=== PATIENT | male | born 1940 | race Caucasian/White ===

== ENCOUNTER 2024-08-19 15:27 | Emergency (ER) | payer OTHER, SELFPAY ==
[2024-08-19 15:35] VITALS: BP 125/79
--- NOTE | 2024-08-19 17:12 | ED.GENMED ---
History of Present Illness
General
Chief Complaint: Skin Surface Trauma
Source: patient
Exam Limitations: none
Time Seen by Provider: 08/19/24 16:18
Nursing documentation reviewed up to this point in time: agreed with
History of Present Illness
History of Present Illness:
84-year-old male with past medical history of A-fib currently on Xarelto, hypertension hyperlipidemia presenting to the emergency department today with concerns of a chainsaw that hit him in the left wrist prior to arrival when he was cutting wood.
Unsure when his last tetanus shot was. He went to an urgent care and they told him that he may have a tendon injury and sent him to the ER. Denies any difficulty with movement any numbness or weakness.
Past History
Past History
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
ED Past Surgical History: Appendectomy and Urological
Social History
Tobacco: Non-smoker
Alcohol: None
Drug: None
Personal:
Living: alone
Employment: Retired
Family History
Family History: Other (Noncontributory)
Review of Systems
Review of Systems
Allergies reviewed?: Yes
All Other Systems: ROS reviewed and negative except as documented in HPI and ROS
Phy Exam
Physical Exam
Physical Exam:
GENERAL: Alert , in no apparent distress
EYE: pupils equal and reactive
NECK: Supple, no significant adenopathy.
ENT: o/p clr, mmm.
CARDIAC: Regular rate and rhythm .
LUNGS: Clear breath sounds bilaterally, no acute respiratory distress, no wheezes/rales/rhonchi
ABDOMEN: Soft, without focal tenderness, no r/g, no cvat
NEUROLOGICAL: Alert and oriented, no focal neuro deficits
SKIN: Laceration to the left wrist at the ulnar aspect on the dorsal aspect. Wound roughly 5 cm in length goes deep to the tendon but the tendon is intact and good range of motion and strength of the wrist and hand. Warm and dry, skin intact.
MUSCULOSKELETAL: No edema, well perfused.
PSYCH: Normal and appropriate interaction.
Course
Orders/Labs/Results
Orders:
Orders
08/19/24 17:05
Cephalexin Monohydrate [Keflex] 500 mg PO NOW STA
Tetanus/Diphth/Acelpertussis [Adacel] 0.5 ml IM .ONCE ONE
Vital Signs
Initial and Last Documented VS:
Initial Vital Signs
Temp Pulse Resp BP Pulse Ox
97.7 F 96 18 125/79 99
08/19/24 15:35 08/19/24 15:35 08/19/24 15:35 08/19/24 15:35 08/19/24 15:35
Last Documented Vital Signs
Temp Pulse Resp BP Pulse Ox
97.7 F 96 18 125/79 99
08/19/24 15:35 08/19/24 15:35 08/19/24 15:35 08/19/24 15:35 08/19/24 15:35
Procedures
Laceration Closure
Left Ulnar Wrist:
Status of Wound: clean
Size of Wound in cm: 5
Description of Wound Edges: ragged and surrounded by abrasion
Preparation: cleaned with saline
Anesthesia: 1% Lidocaine with epi
Revision/Debridement: routine- no revision and irrigate-direct pressure
Wound exploration: explored to base- no FB and no tendon involvement
Type of Closure: single layer closure and interrupted sutures
Skin Closure Material: 4-0 nylon
Number of sutures: 8
MDM/Problems Addressed
MDM/Problems Addressed:
84-year-old male presenting to the emergency department today with concerns of left wrist laceration from a chainsaw prior to arrival. This was clean in appearance thoroughly irrigated here started on Keflex and given a tetanus shot. Otherwise the
tendon was visualized but there was no obvious injury to the send the good range of motion strength of the wrist and hand. No apparent significant tendon injury at this time. This was closed and advised outpatient follow-up as well as suture
removal in 12 to 14 days. Return precautions given.
*Critical Care Note
Total Time (30-74mins, 75-104mins- exclusive of procedures): Not Applicable
ED Attending Note
-
Portions of this chart may have been created with voice recognition software.� Occasional wrong word or��sound alike� substitutions may have occurred due to the inherent limitations of voice recognition software.
Discharge Plan
Departure
Patient Disposition: Home (Routine Discharge)
Date of Disposition: 08/19/24
Time of Disposition: 17:22
Patient with high blood pressure during this ER visit?: No
Condition: Good
Covid-19: Not Applicable
Discharge Problem:
Laceration of left wrist
Instructions: Laceration Repair With Stitches (DC)
Prescriptions:
New
cephalexin 500 mg capsule
500 mg PO TID 3 Days Qty: 9 0RF
No Action
diphenhydramine-acetaminophen [Tylenol PM Extra Strength] 25-500 mg Tablet
1 tab PO HS PRN (Reason: sleep) Qty: 0
venlafaxine [Effexor XR] 37.5 MG capsule,extended release 24hr
37.5 mg PO DAILY
clonazepam 0.25 MG tablet
0.25 mg PO HS
Patient Comments:
04/05/2023: last filled 03/23/23, 15 tabs for 30 days from [id number]
Xarelto 20 MG tablet
20 mg PO QPM
offtsvecvnw-dqbyfxuip-gga C-Mn 1 TAB tablet
1 tab PO DAILY
amlodipine 5 mg Tablet
5 mg PO DAILY
melatonin 5 mg Tablet
5 mg PO HS
imnxuseibjyw-aciqyxzt-ataypb Tablet
1 tab PO DAILY
omega 7-vcv-ugz-fish oil [Fish Oil] 1,200 (144-216) mg Capsule
1 cap PO DAILY
tramadol 50 mg tablet
50 mg PO Q6HPRN PRN (Reason: severe pain/breakthrough pain) Qty: 10 0RF
acetaminophen [Tylenol Extra Strength] 500 mg tablet
1,000 mg PO Q6HPRN PRN (Reason: mild pain) Qty: 1 0RF
polyethylene glycol 3350 [Miralax] 17 gram/dose powder
4 g PO DAILY PRN (Reason: Constipation) Qty: 119 0RF
Rx Instructions:
start a laxative such as MIRALAX on day 2 after surgery if no bowel movement yet as long as no nausea/vomiting and passing gas
Referrals:
Irineo Rosenthal MD [Active] - Follow up in 5-7 days
Melvin Pierce MD [Family Provider] -
Activity Restrictions/Additional Instructions:
You came to the emergency department today with concerns of a laceration to the left wrist. This was cleaned thoroughly and closed with a total stitches. Please wear the splint and follow-up closely with Ortho or primary care doctor for suture
removal in 12 to 14 days. Return to the emergency department sooner for any worsening, new or concerning symptoms.
Interventions
Interventions:
*Risk Screen - Suicide Last Done: 08/19/24 15:39
*General Assessment Last Done: 08/19/24 15:39
*Neglect/Abuse Screening Last Done: 08/19/24 15:39
*ED COVID-19 Vaccine History Last Done: 08/19/24 15:39
ED-Skin Assessment Last Done: 08/19/24 16:24
Discharge Date and Time
Print Language: PARAGUAYAN
[2024-08-19] MEDS: ADACEL 0.5 ML IM (17:31)
[2024-08-19] MEDS: KEFLEX 500 MG PO (17:31)
== END 2024-08-19 17:40 | disposition home or self-care (01) ==
LOC: EMR 15:27
PROVIDERS: EMERGENCY PHYSICIAN Emergency Medicine; FAMILY PHYSICIAN Family Medicine
DX: S61.512A Laceration without foreign body of left wrist, initial encounter (principal); W29.3XXA Contact with powered garden and outdoor hand tools and machinery, initial encounter; Z23 Encounter for immunization; I48.91 Unspecified atrial fibrillation; I10 Essential (primary) hypertension; E78.00 Pure hypercholesterolemia, unspecified; Z79.01 Long term (current) use of anticoagulants; Z90.49 Acquired absence of other specified parts of digestive tract
CPT/HCPCS: 99282; 12002; 90471; 90715

== ENCOUNTER → 2024-09-03 09:37 | Outpatient (REF) | payer OTHER, SELFPAY | LOC: HWRCS 09:37 | PROVIDERS: ATTENDING PHYSICIAN Nuclear Medicine Nuclear Cardiology; FAMILY PHYSICIAN Family Medicine | DX: I10 Essential (primary) hypertension (principal); I48.91 Unspecified atrial fibrillation | CPT/HCPCS: 93306 ==

== ENCOUNTER 2024-11-12 06:16 | Day surgery (SDC) | payer OTHER, SELFPAY | END 2024-11-12 10:35 | disposition home or self-care (01) | LOC: GI 06:16 | PROVIDERS: ATTENDING PHYSICIAN Specialist | DX: Z12.11 Encounter for screening for malignant neoplasm of colon (principal); K57.30 Diverticulosis of large intestine without perforation or abscess without bleeding; K63.5 Polyp of colon; Z86.0101 Personal history of adenomatous and serrated colon polyps | CPT/HCPCS: 45380; 88305 ==

== ENCOUNTER → 2025-01-23 07:32 | Outpatient (REF) | payer OTHER, SELFPAY | LOC: HWRCS 07:32 | PROVIDERS: ATTENDING PHYSICIAN Nuclear Medicine Nuclear Cardiology; FAMILY PHYSICIAN Family Medicine | DX: I48.91 Unspecified atrial fibrillation (principal); R00.2 Palpitations; I45.10 Unspecified right bundle-branch block | CPT/HCPCS: 78452; 93017; A9500; J2785 ==

== ENCOUNTER 2025-09-21 11:44 | Emergency (ER) | payer OTHER, SELFPAY ==
[2025-09-21 11:50] VITALS: BP 135/75
--- NOTE | 2025-09-21 15:31 | ED.GENMED ---
History of Present Illness
General
Chief Complaint: Musculo-Skeletal Complaint
Time Seen by Provider: 09/21/25 12:10
History of Present Illness
History of Present Illness:
see MDM
Past History
Past History
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
ED Past Surgical History: Appendectomy and Urological
Social History
Tobacco: Non-smoker
Alcohol: None
Drug: None
Personal:
Living: alone
Employment: Retired
Family History
Family History: Other (Noncontributory)
Phy Exam
Physical Exam
Physical Exam:
see MDM
Course
Orders/Labs/Results
Orders:
Orders
09/21/25 12:39
Femur, Right 2 View [CR Femur - Right Min 2 Vw] Urgent
Comment:
Reason For Exam: right thigh pain after injury
Knee, Right 4 or More Views [CR Knee- Right 4 Or More View*] Urgent
Comment:
Reason For Exam: right knee pain with walking/flexion
Venous Doppler Lwr Ext Rt [US Perip Venous LOWER Ext RT] Urgent
Comment:
Reason For Exam: right leg pain,s welling
Vital Signs
Initial and Last Documented VS:
Initial Vital Signs
Temp Pulse Resp BP Pulse Ox
36.7 C 77 20 135/75 100
09/21/25 11:50 09/21/25 11:50 09/21/25 11:50 09/21/25 11:50 09/21/25 11:50
Last Documented Vital Signs
Temp Pulse Resp BP Pulse Ox
36.7 C 77 20 135/75 100
09/21/25 11:50 09/21/25 11:50 09/21/25 11:50 09/21/25 11:50 09/21/25 15:33
MDM/Problems Addressed
Differential Diagnosis Includes:
see MDM
MDM/Problems Addressed:
Note:
CHIEF COMPLAINT(S)
Pain in the right leg, described as originating in the knee and extending up into the hip and down into the big toe.
HISTORY OF PRESENT ILLNESS
The patient is an 85-year-old male who presented with complaints of right leg pain. The onset of the pain was approximately five days ago while the patient was working on a step ladder, during which he felt pain while reaching. He did not experience
any falls. The pain initially began in the thigh area and is currently localized to the back of the knee, extending up into the hip. The patient reports the pain is worse at night, preventing sleep, and noted relief after taking acetaminophen
(Tylenol Extra Strength) around 4 a.m., which helped alleviate the pain temporarily. He describes the pain traveling down to his big toe and mentioned, 'The pain goes down the leg and I had to go to my big toe.' Despite the pain, the patient can
walk by dragging his right leg without flexing the knee. He denies any exacerbation of pain with walking or tenderness in the calf area. The patient is currently on rivaroxaban (Xarelto) for atrial fibrillation, taking it as prescribed without
missing doses. He has a past history of arterial clot in the arm, which required surgical intervention. He denies any chest pain or shortness of breath.
PHYSICAL EXAM
- Nursing notes reviewed and vital signs reviewed.
GENERAL: Alert , in no apparent distress, comfortable at rest
HEAD: NCAT
CV: 2+ DP PULSES B/L
NEUROLOGICAL: Alert and oriented, no focal neuro deficits, , 5/5 strength, sensation intact, ambulation slight limp right leg
SKIN: Warm and dry, normal skin to the right leg, no bruising or redness
MUSCULOSKELETAL: Normal inspection of the right hip, knee, ankle and foot without any redness or swelling or effusions, patient does seem to have most pain with knee flexion in the first 30 degrees but can get to 45 degrees, no laxity on varus and
valgus strength, negative anterior posterior drawer sign, he has some tenderness to the anterior thigh along the quadriceps muscle but there is no knot or obvious tear, he can straight leg raise normally, there is negative straight leg raise from
the back perspective, not initiating any sciatica. He has a slightly swollen calf on the right compared to the left which is not tender. There are some varicose veins. His pulses intact. Patient is able to ambulate
Decently well, minimal limp
PSYCH: Normal and appropriate interaction.
PLAN
- Perform an ultrasound to rule out venous thrombosis in the right leg, given the history of clot and current symptoms.
- Order an X-ray to evaluate the hip and knee for any structural issues contributing to symptoms.
- Continue current management with rivaroxaban (Xarelto) for atrial fibrillation.
- Monitor symptoms and re-evaluate if necessary, based on additional test results.
DIFFERENTIAL DIAGNOSIS
The Differential Diagnosis includes, in no particular order and is not limited to:
1. Deep vein thrombosis
2. Sciatica
3. Muscle strain
5. Osteoarthritis
6. Tendonitis
7. Peripheral neuropathy
8. Bursitis
9. Spinal stenosis
10. Bakers cyst
85 y/o M
stretched while on ladder
felt pulling in thigh
no fall
then developedpain behind R knee
some swelling
no numbness/tinglign/color change/weakness
painwith knee flexion
able to ambulate
thigh still sore
xrays indep reivewed, mild OA knee
US sohws bkaer's cyst which makes sense for pt's posterior knee pain
ash wrap
rice
ortho
*Pulse Oximetry
SaO2: 100
Oxygen Mode of Delivery: Room air
Patient hypoxic: no (100)
*Critical Care Note
Total Time (30-74mins, 75-104mins- exclusive of procedures): Not Applicable
ED Attending Note
-
Portions of this chart may have been created with voice recognition software.� Occasional wrong word or��sound alike� substitutions may have occurred due to the inherent limitations of voice recognition software.
Discharge Plan
Departure
Patient Disposition: Home (Routine Discharge)
Date of Disposition: 09/21/25
Time of Disposition: 15:44
Patient with high blood pressure during this ER visit?: No
Condition: Fair
Covid-19: Not Applicable
Discharge Problem:
Leg pain, right, Arthritis of knee, Lofton's cyst of knee
Instructions: Muscle and Bone Pain (DC), Lofton's Cyst (DC)
Prescriptions:
No Action
diphenhydramine-acetaminophen [Tylenol PM Extra Strength] 25-500 mg Tablet
1 tab PO HS PRN (Reason: sleep) Qty: 0
venlafaxine [Effexor XR] 37.5 MG capsule,extended release 24hr
37.5 mg PO DAILY
clonazepam 0.25 MG tablet
0.25 mg PO HS
Patient Comments:
04/05/2023: last filled 03/23/23, 15 tabs for 30 days from [id number]
Xarelto 20 MG tablet
20 mg PO QPM
tikixuipzro-nkaucucza-raq C-Mn 1 TAB tablet
1 tab PO DAILY
amlodipine 5 mg Tablet
5 mg PO DAILY
melatonin 5 mg Tablet
5 mg PO HS
ftwyybiuozrc-ztkranmj-rlntoh Tablet
1 tab PO DAILY
omega 1-aib-obk-fish oil [Fish Oil] 1,200 (144-216) mg Capsule
1 cap PO DAILY
tramadol 50 mg tablet
50 mg PO Q6HPRN PRN (Reason: severe pain/breakthrough pain) Qty: 10 0RF
acetaminophen [Tylenol Extra Strength] 500 mg tablet
1,000 mg PO Q6HPRN PRN (Reason: mild pain) Qty: 1 0RF
polyethylene glycol 3350 [Miralax] 17 gram/dose powder
4 g PO DAILY PRN (Reason: Constipation) Qty: 119 0RF
Rx Instructions:
start a laxative such as MIRALAX on day 2 after surgery if no bowel movement yet as long as no nausea/vomiting and passing gas
cephalexin 500 mg capsule
500 mg PO TID 3 Days Qty: 9 0RF
Referrals:
Yovani Flores MD [Active, Orthopedics] - Follow up in 1 week
Julio Nj DO [Family Provider, Family Practice] - Follow up in 2-3 days
Activity Restrictions/Additional Instructions:
you have arthritis in your knee which probably caused a Lofton's cyst. Lofton's cyst is large behind your knee can cause pain in your calf. You can use the Ash wrap during the day, take it off at night. It should resolve on its own. You should
take Tylenol every 6 hours. Watch for signs of infection like swelling or redness, watch for color change or temperature change to your foot for any worsening or vascular problems. Follow-up with orthopedist in a couple of days. Call for an
appointment. Return for fever, inability to walk, severe swelling, color change to your foot or any concern
Interventions
Interventions:
*Risk Screen - Suicide Last Done: 09/21/25 11:50
*General Assessment Last Done: 09/21/25 11:50
*Neglect/Abuse Screening Last Done: 09/21/25 11:50
*ED COVID-19 Vaccine History Last Done: 09/21/25 12:07
*ED Influenza Vaccine History Last Done: 09/21/25 12:07
[facility] Fall Risk Assessment Tool Last Done: 09/21/25 12:07
*Nursing Disposition Last Done: 09/21/25 16:11
ED-Musculoskeletal Assessment Last Done: 09/21/25 12:07
Discharge Date and Time
Discharge Date/Time: 09/21/25 16:11
Print Language: ROMANIAN
== END 2025-09-21 16:11 | disposition home or self-care (01) ==
LOC: EMR 11:44
PROVIDERS: EMERGENCY PHYSICIAN Emergency Medicine; FAMILY PHYSICIAN Family Medicine
DX: M71.21 Synovial cyst of popliteal space [Baker], right knee (principal); M17.11 Unilateral primary osteoarthritis, right knee; I10 Essential (primary) hypertension; E78.00 Pure hypercholesterolemia, unspecified; Z90.49 Acquired absence of other specified parts of digestive tract; I48.91 Unspecified atrial fibrillation; Z79.01 Long term (current) use of anticoagulants
CPT/HCPCS: 99284; 73552; 73564; 93971

== ENCOUNTER 2025-09-22 04:29 | Inpatient (IN) | payer OTHER, SELFPAY ==
[2025-09-21 21:42] VITALS: BP 145/118
--- NOTE | 2025-09-21 22:48 | ED.GENMED ---
History of Present Illness
<Sofiya Davidson MD, Resident - Last Filed: 09/22/25 05:58>
General
Chief Complaint: Fever
Source: patient
Time Seen by Provider: 09/21/25 22:24
History of Present Illness
History of Present Illness:
Patient is an 85 male with past medical history significant for osteoarthritis, essential hypertension, anxiety, sleep issues, who is here for pain in the right shoulder, radiating down the medial side to his hand with numbness of fingertips that is
interfering with his ability to do activities of daily living like opening the jars. In addition, he also reports pain in the left jaw that is radiating to the cheek and neck. He was here this morning for evaluation of pain in right leg,
ultrasound was negative for any DVT, a moderate-sized Lofton's cyst was diagnosed. As per the patient he is here for evaluation as he feels like his Lofton's cyst might have ruptured and caused infection in the blood.
He has history of osteoarthritis and recently it has been flaring up in his right shoulder. It has been difficult to get the shoulder above head. He was advised to take Tylenol every 8 hours which he has been doing.
Denies any chest pain, nausea, vomiting, abdominal pain, dizziness, near syncopal or syncopal episodes.
Reports fever at home, it was 98F, patient believes that his baseline is around 97.
Past History
<Sofiya Davidson MD, Resident - Last Filed: 09/22/25 05:58>
Past History
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
ED Past Surgical History: Appendectomy and Urological
Social History
Tobacco: Non-smoker
Alcohol: None
Drug: None
Personal:
Living: alone
Employment: Retired
Family History
Family History: Other (Noncontributory)
Phy Exam
<Sofiya Davidson MD, Resident - Last Filed: 09/22/25 05:58>
General Physical Exam
General Presentation: well appearing and no apparent distress
Cardiovascular Exam
Cardiovascular Exam: regular rate/rhythm, no edema and no murmur
Pulmonary Exam
Pulmonary Exam: lungs clear and no respiratory distress
Gastrointestinal Exam
Gastrointestinal Exam: normal bowel sounds, non tender and soft
Neurological Exam
Neurological Exam: alert and oriented x3
Musculoskeletal Exam
Musculoskeletal Exam: other (Right knee swelling, slightly warmer than the left, redness, Right wrist swelling at the base of the thumb)
Skin Exam
Skin Exam: normal color and warm/dry
Psychiatric Exam
Psychiatric Exam: normal mood/affect
Course
<Sofiya Davidson MD, Resident - Last Filed: 09/22/25 05:58>
Orders/Labs/Results
Orders:
Orders
09/21/25 21:45
ECG [Electrocardiogram (*1)] Urgent
Reason for Study: Other
Other Reason for Exam: jaw pain
EKG- Treatment ONCE
09/21/25 22:56
Acetaminophen [Tylenol] 1,000 mg PO NOW ONE
09/21/25 23:06
C-Reactive Protein Urgent
CBC/With Diff [Complete Blood Count/With Diff] Urgent
CMP [Comprehensive Metabolic Panel] Urgent
D-Dimer Urgent
Erythrocyte Sed Rate Urgent
Comment: ADD ON
Lyme Progressive Urgent
Troponin I Urgent
Uric Acid Urgent
Comment: ADD ON
09/22/25 00:28
Add On- LAB Urgent
Tests Added?: sed rate, CRP, uric acid
09/22/25 00:44
Lactic Acid Urgent
Blood Culture Q30M
MELYSSA Source: Blood/Venous
Specimen Description:
09/22/25 01:12
Add On- LAB Urgent
Tests Added?: lyme progressive
09/22/25 01:13
Electrocardiogram (*1) Urgent
Reason for Study: Fatigue / Weakness
EKG- Treatment ONCE
09/22/25 01:22
Blood Culture Q30M
MELYSSA Source: Blood/Venous
Specimen Description:
09/22/25 01:56
Body Fluid Cell Count Urgent
What is the Body Fluid: joint
Date Specimen was Collected: 09/22/25
Time Specimen was Collected: 01:42
Comment: with DIFF
Body Fluid Crystals Urgent
What is the Body Fluid: joint
Date Specimen was Collected: 09/22/25
Time Specimen was Collected: 01:42
Troponin I Urgent
Fluid Culture with Gram Stain Urgent
MELYSSA Source: Joint Fluid
Specimen Description:
Date Specimen was Collected: 09/22/25
Time Specimen was Collected: 01:42
09/22/25 03:08
Dexamethasone Sod Phosphate [Decadron] 10 mg IV NOW STA
09/22/25 03:53
Admit/Transfer Patient As Directed
Co-Sign Provider:
Level of Care: Inpatient admission
Assign to:: Medical/Surgical
Physician / Group: Nirmal
Diagnosis: acute inflammatory monoarthropathy
Reason for Hospitalization: acute inflammatory arthritis with suspected infectious knee joint
Expected length of stay greater than two midnights?: Yes
ELOS- Estimated Length of Stay in days: 2
I certify the patient meets the requirements for IP care: Yes
PRN Pain Medication Management As Directed
May give lesser potent ordered pain med per pt: Yes
preference::
Protocol:: Medication orders for pain may be administered in a
manner that supports deferring to patient preference
when the pt is:
- Requesting an ordered lesser potent pain medication.
Least to most potent pain medications are defined
as: acetaminophen < NSAID < tramadol < opioids
(morphine, oxycodone, hydromorphone).
- Requesting a lesser dose of the same medication IF
ORDERED.
- Requesting a less intrusive route of administration
if both routes are prescribed by the provider (PO <
IV).
09/22/25 03:56
Code Status As Directed
Resuscitation Status: Full Code
09/22/25 05:10
Acetaminophen [Tylenol] 650 mg PO Q4HPRN PRN
Bisacodyl [Dulcolax] 10 mg RECTAL [id number] PRN
Docusate W/Senna [Senokot-S] 1 tablet PO BIDPRN PRN
Ondansetron Injectable [Zofran] 4 mg IV Q6HPRN PRN
Oxycodone [Roxicodone] 5 mg PO Q4HPRN PRN
Polyethylene Glycol Powder [Miralax] 17 grams PO DAILYPRN PRN
09/22/25 05:10
Consult Notification Routine
Specialty to Notify: Rheumatology
Rheumatology Consult Routine
Consulting Provider: Taylor Martinez
Was physician already notified: No
Reason for Consult: Acute inflammatory mono/oligoarthritis
VTE Contraindication Routine
VTE Mechanical Device Contraindication: Medical Contraindication
Pharmocologic Contraindication: Medical Contraindication
Chlamydia/GC by PCR Routine
MELYSSA Source: Urine
Specimen Description:
Source:: URINE
Activity As Directed
Activity Level: With Assistance
Vital Signs As Directed
Frequency: Per unit guidelines
Pulse Ox/spot Check [RESP] Routine
Quantity: 1
09/22/25 Breakfast
Cholesterol Lowering
At Your Request: Full Participation
Cholesterol Lowering: Sodium, 2 Gram
JEMAL, IgG Reflex to HEp-2 [S] IN AM
Basic Metabolic Panel IN AM
Complete Blood Count/No Diff IN AM
RPR [Syphilis/T. pallidum Ab Reflex] IN AM
Rheumatoid Factor [Rheumatoid Agglutinin] IN AM
09/22/25 08:00
Amlodipine [Norvasc] 5 mg PO DAILY
Prednisone [Deltasone] 40 mg PO DAILY
Venlafaxine Extended Release [Effexor Xr] 37.5 mg PO DAILY
09/22/25 18:00
Rivaroxaban [Xarelto] 20 mg PO QPM
09/22/25 22:00
CLONAZepam [CLONAZepam ODT] 0.25 mg PO HS
Melatonin 5 mg PO HS
Abnormal Lab Results
09/21/25
23:06
RBC 3.87 L 10^6/uL
(4.70-6.10)
Hgb 12.6 L g/dL
(13.0-18.0)
Hct 36.7 L %
(39.0-52.0)
MCV 94.8 H fL
(80.0-94.0)
MCH 32.6 H pg
(27.0-31.0)
Absolute Neuts (auto) 7.2 H 10^3/uL
(1.4-6.5)
Absolute Lymphs (auto) 0.6 L 10^3/uL
(1.2-3.4)
Absolute Monos (auto) 1.3 H 10^3/uL
(0.1-0.6)
Neutrophils % 77.5 H %
(42.2-75.2)
Lymphocytes % 6.8 L %
(20.5-51.1)
Monocytes % 14.0 H %
(1.7-9.3)
ESR 77 H mm/hour
(0-20)
D-Dimer 3.46 H ug/mlFEU
(0.00-0.50)
Sodium 132 L mmol/L
(135-145)
Glucose 123 H mg/dl
(70-99)
C-Reactive Protein 189.40 H mg/L
(0.0-10.00)
09/21/25 23:06
09/21/25 23:06
Vital Signs
Initial and Last Documented VS:
Initial Vital Signs
Temp Pulse Resp BP Pulse Ox
98.2 F 79 20 145/118 96
09/21/25 21:42 09/21/25 21:42 09/21/25 21:42 09/21/25 21:42 09/21/25 21:42
Last Documented Vital Signs
Temp Pulse Resp BP Pulse Ox
98.5 F 70 16 138/63 94
09/22/25 05:25 09/22/25 05:25 09/22/25 05:25 09/22/25 05:25 09/22/25 05:25
<Alva Pena, DO - Last Filed: 09/22/25 05:46>
Orders/Labs/Results
Orders:
Orders
09/21/25 21:45
ECG [Electrocardiogram (*1)] Urgent
Reason for Study: Other
Other Reason for Exam: jaw pain
EKG- Treatment ONCE
09/21/25 22:56
Acetaminophen [Tylenol] 1,000 mg PO NOW ONE
09/21/25 23:06
C-Reactive Protein Urgent
CBC/With Diff [Complete Blood Count/With Diff] Urgent
CMP [Comprehensive Metabolic Panel] Urgent
D-Dimer Urgent
Erythrocyte Sed Rate Urgent
Comment: ADD ON
Lyme Progressive Urgent
Troponin I Urgent
Uric Acid Urgent
Comment: ADD ON
09/22/25 00:28
Add On- LAB Urgent
Tests Added?: sed rate, CRP, uric acid
09/22/25 00:44
Lactic Acid Urgent
Blood Culture Q30M
MELYSSA Source: Blood/Venous
Specimen Description:
09/22/25 01:12
Add On- LAB Urgent
Tests Added?: lyme progressive
09/22/25 01:13
Electrocardiogram (*1) Urgent
Reason for Study: Fatigue / Weakness
EKG- Treatment ONCE
09/22/25 01:22
Blood Culture Q30M
MELYSSA Source: Blood/Venous
Specimen Description:
09/22/25 01:56
Body Fluid Cell Count Urgent
What is the Body Fluid: joint
Date Specimen was Collected: 09/22/25
Time Specimen was Collected: 01:42
Comment: with DIFF
Body Fluid Crystals Urgent
What is the Body Fluid: joint
Date Specimen was Collected: 09/22/25
Time Specimen was Collected: 01:42
Troponin I Urgent
Fluid Culture with Gram Stain Urgent
MELYSSA Source: Joint Fluid
Specimen Description:
Date Specimen was Collected: 09/22/25
Time Specimen was Collected: 01:42
09/22/25 03:08
Dexamethasone Sod Phosphate [Decadron] 10 mg IV NOW STA
09/22/25 03:53
Admit/Transfer Patient As Directed
Co-Sign Provider:
Level of Care: Inpatient admission
Assign to:: Medical/Surgical
Physician / Group: Nirmal
Diagnosis: acute inflammatory monoarthropathy
Reason for Hospitalization: acute inflammatory arthritis with suspected infectious knee joint
Expected length of stay greater than two midnights?: Yes
ELOS- Estimated Length of Stay in days: 2
I certify the patient meets the requirements for IP care: Yes
PRN Pain Medication Management As Directed
May give lesser potent ordered pain med per pt: Yes
preference::
Protocol:: Medication orders for pain may be administered in a
manner that supports deferring to patient preference
when the pt is:
- Requesting an ordered lesser potent pain medication.
Least to most potent pain medications are defined
as: acetaminophen < NSAID < tramadol < opioids
(morphine, oxycodone, hydromorphone).
- Requesting a lesser dose of the same medication IF
ORDERED.
- Requesting a less intrusive route of administration
if both routes are prescribed by the provider (PO <
IV).
09/22/25 03:56
Code Status As Directed
Resuscitation Status: Full Code
09/22/25 05:10
Acetaminophen [Tylenol] 650 mg PO Q4HPRN PRN
Bisacodyl [Dulcolax] 10 mg RECTAL [id number] PRN
Docusate W/Senna [Senokot-S] 1 tablet PO BIDPRN PRN
Ondansetron Injectable [Zofran] 4 mg IV Q6HPRN PRN
Oxycodone [Roxicodone] 5 mg PO Q4HPRN PRN
Polyethylene Glycol Powder [Miralax] 17 grams PO DAILYPRN PRN
09/22/25 05:10
Consult Notification Routine
Specialty to Notify: Rheumatology
Rheumatology Consult Routine
Consulting Provider: Taylor Martinez
Was physician already notified: No
Reason for Consult: Acute inflammatory mono/oligoarthritis
VTE Contraindication Routine
VTE Mechanical Device Contraindication: Medical Contraindication
Pharmocologic Contraindication: Medical Contraindication
Chlamydia/GC by PCR Routine
MELYSSA Source: Urine
Specimen Description:
Source:: URINE
Activity As Directed
Activity Level: With Assistance
Vital Signs As Directed
Frequency: Per unit guidelines
Pulse Ox/spot Check [RESP] Routine
Quantity: 1
09/22/25 Breakfast
Cholesterol Lowering
At Your Request: Full Participation
Cholesterol Lowering: Sodium, 2 Gram
JEMAL, IgG Reflex to HEp-2 [S] IN AM
Basic Metabolic Panel IN AM
Complete Blood Count/No Diff IN AM
RPR [Syphilis/T. pallidum Ab Reflex] IN AM
Rheumatoid Factor [Rheumatoid Agglutinin] IN AM
09/22/25 08:00
Amlodipine [Norvasc] 5 mg PO DAILY
Prednisone [Deltasone] 40 mg PO DAILY
Venlafaxine Extended Release [Effexor Xr] 37.5 mg PO DAILY
09/22/25 18:00
Rivaroxaban [Xarelto] 20 mg PO QPM
09/22/25 22:00
CLONAZepam [CLONAZepam ODT] 0.25 mg PO HS
Melatonin 5 mg PO HS
Abnormal Lab Results
09/21/25
23:06
RBC 3.87 L 10^6/uL
(4.70-6.10)
Hgb 12.6 L g/dL
(13.0-18.0)
Hct 36.7 L %
(39.0-52.0)
MCV 94.8 H fL
(80.0-94.0)
MCH 32.6 H pg
(27.0-31.0)
Absolute Neuts (auto) 7.2 H 10^3/uL
(1.4-6.5)
Absolute Lymphs (auto) 0.6 L 10^3/uL
(1.2-3.4)
Absolute Monos (auto) 1.3 H 10^3/uL
(0.1-0.6)
Neutrophils % 77.5 H %
(42.2-75.2)
Lymphocytes % 6.8 L %
(20.5-51.1)
Monocytes % 14.0 H %
(1.7-9.3)
ESR 77 H mm/hour
(0-20)
D-Dimer 3.46 H ug/mlFEU
(0.00-0.50)
Sodium 132 L mmol/L
(135-145)
Glucose 123 H mg/dl
(70-99)
C-Reactive Protein 189.40 H mg/L
(0.0-10.00)
09/21/25 23:06
09/21/25 23:06
Vital Signs
Initial and Last Documented VS:
Initial Vital Signs
Temp Pulse Resp BP Pulse Ox
98.2 F 79 20 145/118 96
09/21/25 21:42 09/21/25 21:42 09/21/25 21:42 09/21/25 21:42 09/21/25 21:42
Last Documented Vital Signs
Temp Pulse Resp BP Pulse Ox
98.5 F 70 16 138/63 94
09/22/25 05:25 09/22/25 05:25 09/22/25 05:25 09/22/25 05:25 09/22/25 05:25
Procedures
<Alva Pena DO - Last Filed: 09/22/25 05:46>
Incision/Drainage/Joint Aspiration
Right Upper Lateral Knee:
Anethesia: 1% Lidocaine with Epi and Added Na bicarb to local
Preparation: cleaned with Betadine
Type of procedure: aspiration
Nature of site: seroma (Right knee joint effusion)
Fluid description: straw colored
Treatment: bandaid applied
<Sofiya Davidson MD, Resident - Last Filed: 09/22/25 05:58>
MDM/Problems Addressed
Differential Diagnosis Includes:
Septic arthritis
Inflammatory arthropathy
Osteoarthritis
Gout
Lyme disease
MDM/Problems Addressed:
Given that the patient has painful right knee with painful movements portable ultrasound of the knee done-joint aspiration for fluid cell count and analysis sent-cell count greater than 30,000, Gram stain and culture pending-with elevated CRP and
ESR suggestive of inflammatory arthropathy
Given the acute nature of symptoms and increased inflammatory markers along with high suspicion of inflammatory arthropathy-Will admit to hospitalist service and initiate steroids
Uric acid within normal limits
Lyme titers pending
Patient felt improvement in pain with Tylenol
<Sofiya Davidson MD, Resident - Last Filed: 09/22/25 05:58>
*Pulse Oximetry
SaO2: 96
Oxygen Mode of Delivery: Room air
Patient hypoxic: no
*Critical Care Note
Total Time (30-74mins, 75-104mins- exclusive of procedures): Not Applicable
ED Attending Note
<Sofiya Davidson MD, Resident - Last Filed: 09/22/25 05:58>
-
Portions of this chart may have been created with voice recognition software.� Occasional wrong word or��sound alike� substitutions may have occurred due to the inherent limitations of voice recognition software.
<Alva Pena DO - Last Filed: 09/22/25 05:46>
ED Attending Note
Patient seen and examined by attending physician: Yes
I performed the substantive portion of visit, reviewed & personally made and approve the management plan that is documented in note by myself or MARTINA.: Yes
ED Attending Note:
This is an 85-year-old gentleman who has history of paroxysmal atrial fibrillation, chronically maintained on Xarelto. History of hypertension, hyperlipidemia, obstructive sleep apnea/compliant with CPAP. History of bladder cancer status post
cystoprostatectomy with urostomy formation.
He presented to this ED earlier this morning with complaints of 5-day history of right posterior knee, posterior calf pain that has gotten progressively worse over the past 5 to 6 days with onset of some knee swelling and redness right lateral knee
2 days ago.
Underwent venous Doppler right lower extremity negative for DVT but note of a Lofton's cyst. Right knee x-ray showed mild to moderate tricompartmental osteoarthritis.
He returns tonight with complaints of continued, worsening pain right knee primarily posterior aspect and much worse with flexion of his knee. He was also concern for low-grade fever, onset tonight as well as pain and swelling of his right wrist,
right long and ring digits as well as left lateral posterior jaw pain. He does note increased pain with chewing on the left side. All the symptoms began tonight.
He believes he may have had a remote history of gout. Not definitive.
He was given Tylenol after arrival to the ED with mild improvement in pain.
85-year-old gentleman appears his stated age, awake and alert, pleasant, appears in no acute distress.
HEENT: Mild tenderness left posterior mandible region. Left lower posterior molar is moderately tender to palpation with mild focal dental decay. There is no adenopathy. TMs are clear bilaterally.
Extremity exam notable for mild palpable effusion of right knee with mild erythema right lateral knee. Moderate tenderness right knee especially posterior aspect with exquisite pain with flexion of his right knee. There is no calf tenderness nor
thigh tenderness. No lymphangitis.
There is mild erythema and soft tissue swelling right dorsal radial wrist with markedly limited range of motion of right wrist. There is very minimal soft tissue swelling and erythema of the PIP joints of the long and ring digits.
Concern for polyarthropathy, infectious versus inflammatory in nature. Patient afebrile since arrival to the ED but reports low-grade fever at home. Concern for sepsis. Less likely acute coronary syndrome.
Labs thus far unremarkable. Will add inflammatory markers. Uric acid. Lyme titer. Will check troponin, EKG.
Will plan on arthrocentesis right knee for joint fluid analysis.
With ultrasound guidance and under aseptic technique, right knee arthrocentesis performed by myself.
10 mL straw-colored minimally cloudy fluid aspirated. Patient tolerated procedure well. Fluid has been sent for culture, Gram stain, cell count, crystal analysis.
Inflammatory markers are significantly elevated. Normal uric acid level. Troponin is negative x 2.
Right knee joint fluid WBCs 35,000, not consistent with infectious arthropathy. Negative for crystals. Gram stain and culture are pending.
Due to progressive symptoms, severe pain, significantly elevated inflammatory markers will initiate IV steroids and admit to hospitalist service for further evaluation. At this point we will hold off on antibiotics but will consult with hospitalist.
Discharge Plan
Departure
Patient Disposition: Admit
Admit to: Med/Surg
Presentation/result/management discussed w/ accepting MD/DO: Hospitalist
Discharge Problem:
Inflammatory arthropathy
Interventions
Interventions:
*Risk Screen - Suicide Last Done: 09/21/25 23:43
*General Assessment Last Done: 09/21/25 21:42
*Neglect/Abuse Screening Last Done: 09/21/25 23:43
*ED COVID-19 Vaccine History Last Done: 09/21/25 23:43
*ED Influenza Vaccine History Last Done: 09/21/25 23:43
[facility] Fall Risk Assessment Tool Last Done: 09/21/25 23:44
*Nursing Disposition Last Done: 09/22/25 04:47
ED- Neurological Assessment Last Done: 09/21/25 23:41
ED-Skin Assessment Last Done: 09/21/25 23:42
Discharge Date and Time
Discharge Date/Time: 09/22/25 05:02
[2025-09-21 23:00] VITALS: BP 134/68
[2025-09-21] MEDS: TYLENOL 1000 MG PO (23:09)
[2025-09-21 23:26] LABS: Hematocrit 36.7 % (39.0-52.0); Hemoglobin 12.6 g/dL (13.0-18.0); Mean Corp Hgb Conc. 34.3 g/dL (33.0-37.0); Mean Corpuscular Volume 94.8 fL (80.0-94.0); Nucleated Red Blood Cells % 0 % (-); Platelet Count 213 10^3/uL (130-400); Red Cell Dist. Width 12.2 % (11.5-14.5)
[2025-09-21 23:38] LABS: D-Dimer 3.46 ug/mlFEU (0.00-0.50)
[2025-09-21 23:43] LABS: ALT (SGPT) 16 U/L (0-50); AST (SGOT) 35 U/L (17-59); Albumin 3.7 g/dl (3.5-5.0); Alkaline Phosphatase 60 U/L (38-126); Blood Urea Nitrogen 18 mg/dl (9-20); Calcium 8.8 mg/dl (8.4-10.2); Carbon Dioxide 29 mmol/L (22-30); Chloride 99 mmol/L (98-107); Glucose 123 mg/dl (70-99); Potassium 4.4 mmol/L (3.5-5.1); Sodium 132 mmol/L (135-145); Total Protein 7.0 g/dl (6.3-8.2); eGFR > 60.00
[2025-09-21 23:44] VITALS: BMI 31.6
[2025-09-21 23:46] LABS: Troponin I 0.015 ng/ml
[2025-09-22] VITALS (10 sets, daily range): BP systolic 123–164; BP diastolic 56–95; PULSE 2; BMI 31.6
[2025-09-22 01:39] LABS: Uric Acid 4.1 mg/dl (3.5-8.5)
[2025-09-22 02:24] LABS: C-Reactive Protein 189.40 mg/L (0.0-10.00)
[2025-09-22 02:53] LABS: Troponin I 0.017 ng/ml
--- NOTE | 2025-09-22 03:20 | HPS.HSE ---
Family Physician
-
Family Physician: Julio Nj DO
Chief Complaint
-
Fever and knee pain
History of Present Illness
This is a 85-year-old male with past medical history significant for paroxysmal atrial fibrillation on anticoagulation, prediabetes, hypertension, hyperlipidemia, history of bladder and prostate cancer status post cystoprostatectomy, sleep apnea
presenting to the Emergency Department with fever and right knee pain.
Patient reports history of knee osteoarthritis. He says he has been going up and down ladders recently and developed a right knee pain over the last 3 to 4 days. He was seen in the emergency department 2 days ago and was diagnosed with
osteoarthritis. He was told to go home and if he has worsening symptoms return to the emergency department. He said is temperature usually runs around 96 but it was 98 yesterday which was elevated for him. Today he reports worsening pain in the
right knee which he says is actually localized to the posterior knee. And radiates to the hips as well as down to the calf. The pain is worse with flexion of the knee such as when walking up a flight of stairs. But standing up straight and
putting weight on the leg resulted in minimal discomfort. He had some redness on the lateral aspect of the knee. He also now reports right wrist as well as right finger pain and discomfort. He has a mild redness around the right wrist. He also
reports pain in his jaw, does have a history of tooth infections in the past. No nausea or vomiting. He denies any recent urinary tract infections or abdominal infections. No recent medication. He reports a remote history of gouty arthritis.
In the Emergency Department he was afebrile with a temp of 98.2, blood pressure was 127.4 with a pulse of 64 and was satting 98% on room air.
CBC was unremarkable with a white count of 9.2 hemoglobin of 10.6 and platelet count of 213. Electrolytes are BUN/creatinine were all normal. Glucose was normal.
Lactic acid of 0.7 which is normal. ESR of 77 and CRP of 189. RLE U/S with no evidence of deep venous thrombosis in the right lower extremity. There is a moderate-sized Lofton's cyst. Knee x-ray with osteoarthritis and prepatellar enthesopathy
but otherwise no fractures dislocations or acute findings.
Arthrocentesis of the right knee shows 35,000 WBCs with 75% PMNs, no crystals
Medical History
Past Medical History
Past Medical History: Reports Other
Additional Past Medical History:
Bladder cancer
Hypertension
Paroxysmal atrial fibrillation
Hyperlipidemia
Right upper extremity embolus
Parastoma hernia
Depression
�
Past Surgical History: Reports Other
Additional Past Surgical History:
appendectomy�
ileal conduit diversion
cystoprostatectomy
right upper extremity embolectomy
parastoma hernia mesh repair
Social History
Tobacco: Non-smoker
Alcohol: None
Drug: None
Personal:
Living: Alone
Family History
Family History: Not pertinent
Allergies / Home Medications
Allergies reflects when Allergies were last updated in [employer].
Home Medications with original date entered in [employer]
Allergy/Medication List:
Allergies
Allergy/AdvReac Type Severity Reaction Status Date / Time
phenazopyridine Allergy bowel Verified 09/21/25 21:42
gas,cramping
ezetimibe (From Zetia) AdvReac increase Verified 09/21/25 21:42
muscle
enzymes
fenofibrate nanocrystallized AdvReac muscle Verified 09/21/25 21:42
(From Tricor) cramps and
increase
muscle
enzymes
fenofibrate,micronized (From AdvReac muscle Verified 09/21/25 21:42
Tricor) cramps and
increase
muscle
enzymes
simvastatin AdvReac muscle Verified 09/21/25 21:42
cramps
Home Medications
diphenhydramine 25 mg-acetaminophen 500 mg tablet (Tylenol PM Extra Strength) 1 tab PO HS PRN sleep ##0 09/22/17
clonazepam 0.5 mg tablet 0.25 mg PO HS Mental Health/Anxiety 03/05/19
venlafaxine 37.5 mg capsule,extended release 24 hr (Effexor XR) 37.5 mg PO DAILY Depression 03/05/19
rivaroxaban 20 mg tablet (Xarelto) 20 mg PO QPM Blood Clot Prevention/Tx 05/22/19
Held on 07/26/23. Instructions: Resume on 07/28/23. hold Xarelto for 72hrs post op; resume 07/28/23
gzwjsqpusth-khpxhrtwc-gkm C-Mn 750 mg-600 mg-55 mg-5 mg tablet 1 tab PO DAILY Supplement 07/31/19
amlodipine 5 mg tablet 5 mg PO DAILY Blood Pressure 05/28/22
melatonin 5 mg tablet 5 mg PO HS Sleep 04/05/23
zynwejkjfdib-bfrphkyf-gifoce tablet 1 tab PO DAILY Supplement 07/20/23
omega 9-utg-gfy-fish oil 1,200 mg (144 mg-216 mg) capsule (Fish Oil) 1 cap PO DAILY Supplement 07/20/23
acetaminophen 500 mg tablet (Tylenol Extra Strength) 1,000 mg (2 x 500 mg) PO Q6HPRN PRN mild pain #1 tab 07/26/23
polyethylene glycol 3350 17 gram/dose oral powder (Miralax) 4 g PO DAILY PRN Constipation #119 grams 07/26/23
tramadol 50 mg tablet 50 mg PO Q6HPRN PRN severe pain/breakthrough pain #10 tabs 07/26/23
cephalexin 500 mg capsule 500 mg PO TID 3 days #9 caps 08/19/24
Review of Systems
-
Constitutional: Reports No Symptoms
EENT: Reports No Symptoms
Respiratory: Reports No Symptoms
Cardiac: Reports No Symptoms
Abdomen/GI: Reports No Symptoms
: Reports No Symptoms
Musculoskeletal: Reports Joint Pain
Skin: Reports No Symptoms
Neurological: Reports No Symptoms
Endocrine: Reports No Symptoms
Hematologic/Lymphatic: Reports No Symptoms
Psych: Reports No Symptoms
Physical Exam
Vital Signs
Vital Signs
Temp Pulse Resp BP Pulse Ox
98.2 F 64 16 127/64 95
09/21/25 21:42 09/22/25 02:00 09/22/25 02:00 09/22/25 02:00 09/22/25 02:00
Physical Exam
General: Well Developed, Well Nourished and No Apparent Distress
HEENT: NormoCephalic, Moist mucous membranes and Atraumatic
Respiratory: Clear
Cardiac: S1/S2 and Regular Rhythm; No Murmur or Rub
GI: Soft, Non Tender, Non Distended and Normal Bowel Sounds; No Organomegaly
Rectal: Deferred by Provider
Musculoskeletal: No Clubbing, No Cyanosis and Other (Mild erythema on the lateral aspect of the right knee, there is minimal significant effusion after 30 mL thoracentesis, there is decreased range of motion and pain with flexion,)
Skin: No Rash
Neuro: AO x 3 and Nonfocal/grossly intact
Psych: Calm
Laboratory Results
-
09/21/25 23:06
09/21/25 23:06
Laboratory Results
Lactic Acid 0.7 mmol/L (0.7-2.0) 09/22/25 00:44
Total Bilirubin 0.7 mg/dl (0.2-1.3) 09/21/25 23:06
AST 35 U/L (17-59) 09/21/25 23:06
ALT 16 U/L (0-50) 09/21/25 23:06
Alkaline Phosphatase 60 U/L (38-126) 09/21/25 23:06
Troponin I 0.017 ng/ml 09/22/25 01:56
Data Reviewed
-
Lab Data: Labs Reviewed by me
Old Records: Reviewed
Impression/Plan
-
IMPRESSION:
85-year-old with right knee pain and swelling, found to have markedly elevated inflammatory markers though no systemic signs of infection with no peripheral leukocytosis and no fevers or chills. Does appear to have significantly elevated WBCs on
knee joint arthrocentesis which drained about 30 mL. Currently no significant effusion. 35k WBCs in the synovial fluid. No crystals. No other abnormal cells. Cx pending. Most of the knee pain is in the posterior knee fossa where the lofton cyst
is, but the cyst is not inflammaed. 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
PLAN:
Acute inflammatory monoarthritis versus oligoarthritis -mild borderline for infectious arthritis with only 35,000 WBCs less than 50,000 threshold. Patient has not been on antibiotics recently, low suspicion for gonococcal infection does this is
unlikely infectious arthritis.
� Admit to [facility] inpatient for rule out septic arthritis
� Blood culture sent
� Fluid sample culture also sent
� Hold off on antibiotics for now
� Patient started on steroids for presumed oligoarthritis which may be reactive
� Check uric acid levels, Rheumatoid factor and JEMAL
� Check RPR, Lyme titers and gonococcal or urinary probe
� Pain control
Atrial fibrillation
� Continue Xarelto
Hypertension
� Continue amlodipine
DANIEL
� Continue CPAP
DVT prophylaxis�on apixaban
CODE STATUS�full code
[2025-09-22] MEDS: DECADRON 10 MG IV (03:58)
[2025-09-22 07:29] LABS: Hematocrit 37.6 % (39.0-52.0); Hemoglobin 13.0 g/dL (13.0-18.0); Mean Corp Hgb Conc. 34.6 g/dL (33.0-37.0); Mean Corpuscular Volume 94.0 fL (80.0-94.0); Platelet Count 211 10^3/uL (130-400); Red Cell Dist. Width 12.2 % (11.5-14.5)
[2025-09-22] MEDS: NORVASC 5 MG PO (07:37)
[2025-09-22] MEDS: DELTASONE 40 MG PO (07:37)
[2025-09-22] MEDS: EFFEXOR XR 37.5 MG PO (07:37)
[2025-09-22 07:54] LABS: Blood Urea Nitrogen 14 mg/dl (9-20); Calcium 8.7 mg/dl (8.4-10.2); Carbon Dioxide 25 mmol/L (22-30); Chloride 102 mmol/L (98-107); Estimated Creatinine Clearance 82 ml/min; Glucose 137 mg/dl (70-99); Potassium 4.2 mmol/L (3.5-5.1); Sodium 135 mmol/L (135-145); eGFR > 60.00
--- NOTE | 2025-09-22 09:43 | CM ---
Patient seen at bedside on . Patient stated that he lives alone in a ranch style home. patient stated 2 steps to enter. Patient PCP is Dr. Nj and he uses the [facility] on [address]. Patient does not anticipate that he will need any VN at
discharge but would be open if physician recommending supports. CM will continue to follow for discharge planning needs.
Plan; home with no needs vs home with VN
--- NOTE | 2025-09-22 14:37 | W.PN.UPDATE ---
Update Note
Progress Note Update
Seen and examined in today
Without acute complaints
Able to bend his right knee however remains swollen
Follow-up on culture data
Hold off on antibiotics
Continue IV steroids
Likely has acute monoarthropathy likely secondary to osteoarthritis
If cultures remain negative then will discuss with Ortho for intra-articular glucocorticoid injection and further drainage if needed
[2025-09-22] MEDS: XARELTO 20 MG PO (16:48)
[2025-09-22] MEDS: MELATONIN 5 MG PO (21:12)
--- NOTE | 2025-09-22 23:45 | PTCARENOTE ---
Assumed care of pt at 1900. Pt is A/O x3, pleasant and cooperative with care. No c/o pain. Able to ambulate independently to BR. Physical assessment as documented in nursing shift assessment flowsheet. Pt placed on CPAP for sleep by RT.
[2025-09-23 06:28] LABS: Hematocrit 36.4 % (39.0-52.0); Hemoglobin 12.5 g/dL (13.0-18.0); Mean Corp Hgb Conc. 34.3 g/dL (33.0-37.0); Mean Corpuscular Volume 94.3 fL (80.0-94.0); Platelet Count 229 10^3/uL (130-400); Red Cell Dist. Width 12.1 % (11.5-14.5)
[2025-09-23 06:33] LABS: Blood Urea Nitrogen 23 mg/dl (9-20); Calcium 8.6 mg/dl (8.4-10.2); Carbon Dioxide 26 mmol/L (22-30); Chloride 102 mmol/L (98-107); Estimated Creatinine Clearance 82 ml/min; Glucose 128 mg/dl (70-99); Potassium 4.5 mmol/L (3.5-5.1); Sodium 135 mmol/L (135-145); eGFR > 60.00
[2025-09-23 07:30] VITALS: BP 143/76
[2025-09-23] MEDS: DELTASONE 40 MG PO (09:49)
[2025-09-23] MEDS: NORVASC 5 MG PO (09:49)
[2025-09-23] MEDS: EFFEXOR XR 37.5 MG PO (09:49)
--- NOTE | 2025-09-23 12:07 | W.PN.HOSP.TC ---
Today's Communication/Plan
-
d/c
Assessment / Plan
Assessment / Plan
Admission summary: 85-year-old with right knee pain and swelling, found to have markedly elevated inflammatory markers though no systemic signs of infection with no peripheral leukocytosis and no fevers or chills. Does appear to have significantly
elevated WBCs on knee joint arthrocentesis which drained about 30 mL. Currently no significant effusion. 35k WBCs in the synovial fluid. No crystals. No other abnormal cells. Cx pending. Most of the knee pain is in the posterior knee fossa where
the lofton cyst is, but the cyst is not inflamed. 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
Gen: NAD, AAOx3.
Eyes: EOMI, PERRLA, no scleral icterus.
Neck: supple.
CV: RRR, +S1/S2, no m/r/g.
Resp: CTAB, no rales, wheezes, or rhonchi.
Abd: +BS, soft, NT, ND
Skin: No rashes.
MSK: R knee with normal range of motion, without effusion, warmth, or TTP
Neuro: CN 2-12 intact, non-focal.
Psych: Normal mood and affect.
09/22/25 01:56 Joint Wound Culture - Preliminary
No growth
09/22/25 01:56 Joint Gram Stain - Preliminary
09/23/25 02:01 Urine Chlamydia trachomatis (PCR) - Final
09/23/25 02:01 Urine Neisseria gonorrhoeae (PCR) - Final
09/22/25 00:44 Blood/Venous Blood Culture - Preliminary
No Growth in 24 hours- Final report to follow
09/22/25 01:22 Blood/Venous Blood Culture - Preliminary
No Growth in 24 hours- Final report to follow
RLE U/S with no evidence of deep venous thrombosis in the right lower extremity. There is a moderate-sized Lofton's cyst.
R Knee x-ray with osteoarthritis and prepatellar enthesopathy but otherwise no fractures dislocations or acute findings.
R knee pain and swelling:
-likely monoarticular inflammatory arthritis
-arthrocentesis on admission with 35,000 WBCs with 75% PMNs, no crystals
-afebrile throughout hospitalization
-minimal leukocytosis likely steroid induced
-BCxs NGTD, joint fluid gram stain without WBCs or organisms
-medically cleared for d/c on short prednisone taper
Other problems:
Chronic atrial fibrillation: Cont Xarelto
Essential HTN: cont Norvasc
DANIEL: cont CPAP HS
FULL/Xarelto
Total time spent on d/c = 33 min. This included today's physical exam, progress note, review of laboratory and diagnostic data, preparation of discharge documents and prescriptions, and discussions about the pt's hospital course and discharge plan
with the patient and other medical staff manager involved in the patient's care.
Anticipated Discharge: Today
Subjective/Interval History
-
Date of Service: September 23, 2025
Objective Data
-
Labs:
Laboratory Results
09/23/25
06:03
WBC 12.9 H
Hgb 12.5 L
Hct 36.4 L
Plt Count 229
Sodium 135
Potassium 4.5
Chloride 102
Carbon Dioxide 26
BUN 23 H
Creatinine 0.8
Glucose 128 H
Calcium 8.6
Vital Signs:
Vital Signs
Temp Pulse Resp BP Pulse Ox
98.6 F 62 16 143/76 98
09/23/25 07:30 09/23/25 07:30 09/23/25 07:30 09/23/25 07:30 09/23/25 07:30
I&O
09/22/25 09/23/25 09/24/25
06:59 06:59 06:59
Intake Total 930 / 930
Output Total 1975 / 1975
Balance -1045 / -1045
--- NOTE | 2025-09-23 14:31 | CM ---
Patient discharged home today
No CM needs
--- NOTE | 2025-09-23 15:12 | W.DCSUMMARY ---
Discharge Summary
Discharge Data
Date of Admission: 09/22/25
Date of Discharge: 09/23/25
-
Pending Results: No
Hospital Course
Primary diagnoses:
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
Secondary diagnoses:
Chronic atrial fibrillation
Essential hypertension
Obstructive sleep apnea
Hyperlipidemia
Obstructive sleep apnea
h/o bladder and prostate cancer s/p cystoprostatectomy
Consultants:
None
Imaging:
RLE U/S with no evidence of deep venous thrombosis in the right lower extremity. There is a moderate-sized Lofton's cyst.
R Knee x-ray with osteoarthritis and prepatellar enthesopathy but otherwise no fractures dislocations or acute findings.
Hospital course: 85-year-old male who was admitted yesterday with a chief complaint of fever and right knee pain as outlined in the H&P done on admission. Imaging above. The patient underwent arthrocentesis on admission with 35,000 WBCs with 75%
PMNs, no crystals. He was afebrile throughout hospitalization. He was placed on prednisone and had rapid improvement in his symptoms. He had a minimal leukocytosis which was likely steroid induced. Blood cultures were NGTD, joint fluid gram stain
was without WBCs or organisms. The patient was discharged in medically stable condition on a short prednisone taper.
Discharge Plan
-
Patient Disposition: Home (Routine Discharge)
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
Condition: Good
Diet: Other diet
Additional Diets: heart healthy
Activity: As tolerated
Driving Restrictions: As prior to admission
Referrals:
Julio Nj DO [Family Provider, Family Practice] - in less than 1 week
Prescriptions:
New
prednisone 10 mg tablet
10 mg PO DIRECTED Qty: 10 0RF
Rx Instructions:
Taper: 40mg daily x 1 day, 30mg daily x 1 day, 20mg daily x 1 day, 10mg daily x 1 day
Continued
diphenhydramine-acetaminophen [Tylenol PM Extra Strength] 25-500 mg Tablet
1 tab PO HS PRN (Reason: sleep) Qty: 0
venlafaxine [Effexor XR] 37.5 MG capsule,extended release 24hr
37.5 mg PO DAILY
clonazepam 0.25 MG tablet
0.25 mg PO HS
Patient Comments:
04/05/2023: last filled 03/23/23, 15 tabs for 30 days from [id number]
Xarelto 20 MG tablet
20 mg PO QPM
zbibdqsglze-llzrljqaa-axb C-Mn 1 TAB tablet
1 tab PO DAILY
amlodipine 5 mg Tablet
5 mg PO DAILY
melatonin 5 mg Tablet
5 mg PO HS
rkkpfnghmcne-phiquohb-mquobg Tablet
1 tab PO DAILY
omega 7-lhg-gca-fish oil [Fish Oil] 1,200 (144-216) mg Capsule
1 cap PO DAILY
tramadol 50 mg tablet
50 mg PO Q6HPRN PRN (Reason: severe pain/breakthrough pain) Qty: 10 0RF
acetaminophen [Tylenol Extra Strength] 500 mg tablet
1,000 mg PO Q6HPRN PRN (Reason: mild pain) Qty: 1 0RF
polyethylene glycol 3350 [Miralax] 17 gram/dose powder
4 g PO DAILY PRN (Reason: Constipation) Qty: 119 0RF
Rx Instructions:
start a laxative such as MIRALAX on day 2 after surgery if no bowel movement yet as long as no nausea/vomiting and passing gas
Discontinued
cephalexin 500 mg capsule
500 mg PO TID 3 Days Qty: 9 0RF
Discharge Orders:
Discharge Patient (As Directed); Ordered 09/23/25
Ordered By: Ming Upton
Discharge Date and Time
Discharge Date/Time: 09/23/25 14:35
Print Language: ARMENIAN
[2025-09-24 12:28] LABS: Lyme Antibody Screen, EIA Negative (Negative)
[2025-09-24 12:28] LABS: Syphilis/T. pallidum Ab Reflex Negative (Negative)
[2025-09-25 09:04] LABS: ANA, IgG Reflex to HEp-2 None Detected (None Detected)
== END 2025-09-23 14:35 | disposition home or self-care (01) | DRG 554 ==
LOC: 4 WEST ACU 04:29
PROVIDERS: Hospitalist; ADMITTING PHYSICIAN Internal Medicine; ATTENDING PHYSICIAN Internal Medicine; EMERGENCY PHYSICIAN Emergency Medicine; FAMILY PHYSICIAN Family Medicine
PROC: 0S9C3ZZ Drainage of Right Knee Joint, Percutaneous Approach (ICD-10-PCS; 2025-09-22)
DX: M17.11 Unilateral primary osteoarthritis, right knee (principal); I48.20 Chronic atrial fibrillation, unspecified; I10 Essential (primary) hypertension; G47.33 Obstructive sleep apnea (adult) (pediatric); I48.0 Paroxysmal atrial fibrillation; Z79.01 Long term (current) use of anticoagulants
CPT/HCPCS: 20610; 80048; 80053; 83605; 84484; 84550; 85025; 85027; 85379; 85652; 86038; 86140; 86430; 86618; 86780; 87040; 87070; 87205; 87491; 87591; 89051; 89060; 93005; 94660; 96374; 99285